=== PATIENT | male | born 1960 | race Caucasian/White ===

== ENCOUNTER → 2018-09-23 | Outpatient (CLI) | payer OTHER ==
--- NOTE | 2018-09-23 21:00 | REP ---
Clinical: Neck pain. Technique: AP, lateral, flexion/extension bilateral oblique, and open-mouth views of the cervical spine. Findings: Alignment and lordosis maintained. Moderate focal degenerative disc osteophyte complex at C5-6 noted including facet arthropathy and neural foraminal narrowing. No acute fracture / compression injury or subluxation. Open mouth view demonstrates normal C1-C2 articulation and odontoid process. Impression: Focal moderate degenerative changes at C5-6. Electronically Signed by Franklin Boateng MD 09/23/2018 08:51 P
== END ==
LOC: M RAD 13:17
PROVIDERS: ATTEND Physician Assistant Medical
DX: M50.322 Other cervical disc degeneration at C5-C6 level (principal)

== ENCOUNTER → 2019-06-12 | Outpatient (REF) | payer OTHER | LOC: M SMT 16:47 | PROVIDERS: ATTEND Urology | DX: R97.20 Elevated prostate specific antigen [PSA] (principal); R39.9 Unspecified symptoms and signs involving the genitourinary system | CPT/HCPCS: 51798; 81002; 87086; G0463 ==

== ENCOUNTER → 2019-06-13 | Outpatient (CLI) | payer OTHER ==
[~2019-06-13] MED LIST: PROHANCE 279.3MG/ML 15ML VIAL (A9576) As Ordered ONE; PROHANCE 279.3MG/ML 5ML VIAL (A9576) As Ordered ONE
--- NOTE | 2019-06-13 16:26 | REP ---
MULTIPARAMETRIC PROSTATE MRI STUDY WITH AND WITHOUT GADOLINIUM: Multiple sequences obtained of the pelvis in the axial, coronal and sagittal planes prior to and following the intravenous administration of 16 mL ProHance. Images are evaluated on the [employer] software and regions of interest are identified for MR ultrasound fusion guided biopsy. There is no adenopathy or free fluid in the pelvis. Visualized osseous structures demonstrate no suspicious bone lesion. Prostate gland measures 4.7 x 3.4 x 3.3 cm for a total volume of 29.53 mL. There are three areas of interest identified in the prostate for MR ultrasound fusion guided biopsy. First on the left transitional zone extending from the base to the apex there is an area of mixed T2 signal which is predominately low in signal on T2 and DWI images. There are area of type 3 enhancement in this region. The area measures 2.0 x 1.0 x 2.8 cm for a total volume of 3.87 mL. Overall level of suspicion is 3 out of 5 with clinically significant cancer equivocal. Second in the right transitional zone extending from the base to the apex, there is heterogeneous T2 hypointensity as well as hypointensity on DWI imaging. There are areas of type 3 enhancement in this region. The area measures 1.8 x 1.1 x 2.1 cm for a total volume of 2.95 mL. Overall level of suspicion is 3 out of 5 with clinically significant cancer equivocal. Thirdly, in the right mid and apical posterior peripheral zone there is a geographic area of predominately low signal on T2 and DWI images. There is predominately type 1 enhancement within this region. The area measures 1.8 x 0.6 x 1.4 cm for a total volume of 1.12 mL. This may represent an area of prostatitis. Overall level of suspicion is 2 out of 5 with clinically significant cancer unlikely to be present. IMPRESSION: Three areas of interest are identified in the prostate for consideration for MR ultrasound fusion guided biopsy. Electronically Signed by Noble Jo MD 06/13/2019 04:27 P
== END ==
LOC: M RAD 12:56
PROVIDERS: ATTEND Urology
DX: R97.20 Elevated prostate specific antigen [PSA] (principal)
CPT/HCPCS: 72197; A9576

== ENCOUNTER → 2019-07-01 | Outpatient (CLI) | payer OTHER ==
--- NOTE | 2019-07-01 13:32 | REPPI ---
TRANSRECTAL ULTRASOUND GUIDANCE FOR PROSTATE BIOPSY: Transrectal ultrasound guidance was provided utilizing MR ultrasound fusion guided biopsy technique. Multiple biopsies are obtained by Dr. Leiva. Electronically Signed by Noble Jo MD 07/01/2019 03:31 P
== END ==
LOC: M SMT PRO 09:05
PROVIDERS: ATTEND Urology
DX: R97.20 Elevated prostate specific antigen [PSA] (principal)
CPT/HCPCS: 55700; 76942; G0416

== ENCOUNTER → 2021-02-09 | Outpatient (CLI) | payer OTHER ==
[2021-02-09 11:37] LABS: APPEARANCE, URINE CLEAR (CLEAR); BACTERIA, URINE AUTO NEGATIVE (NEGATIVE); BILIRUBIN, URINE AUTO NEGATIVE (NEGATIVE); BLOOD, URINE BLOOD 1+ (NEGATIVE); COLOR, URINE YELLOW (YELLOW); GLUCOSE, URINE (UA) AUTO NEGATIVE (NEGATIVE); KETONE, URINE AUTO NEGATIVE (NEGATIVE); LEUKOCYTE ESTERASE, URINE AUTO NEGATIVE (NEGATIVE); NITRITE, URINE AUTO NEGATIVE (NEGATIVE); PROTEIN, URINE AUTO NEGATIVE (NEGATIVE); RBC, URINE AUTO 3 /HPF (0-3); SPECIFIC GRAVITY URINE AUTO 1.005 (1.002-1.035); SQUAMOUS EPITHELIAL CELL UR AU 0 /HPF (0-6); UROBILINOGEN, URINE AUTO 0.2 mg/dL (0.0-2.0); WBC, URINE AUTO 0 /HPF (0-3)
[2021-02-09 11:38] LABS: BASO # 0.1 10^3/uL (0.0-0.2); BASO % 1.4 % (0.0-1.0); EOS # 0.3 10^3/uL (0.0-0.5); EOS % 3.2 % (0.0-3.0); HEMATOCRIT 43.6 % (42.0-52.0); HEMOGLOBIN 14.7 g/dl (13.5-17.5); LYMPH # 2.4 10^3/uL (1.5-5.0); LYMPH % 24.1 % (24.0-44.0); MEAN CORPUSCULAR HEMOGLOBIN 30.7 pg (27.0-33.0); MEAN CORPUSCULAR HGB CONC 33.7 g/dl (32.0-36.5); MONO # 0.8 10^3/uL (0.0-0.8); MONO % 8.3 % (2.0-8.0); NEUTROPHILS # 6.3 10^3/uL (1.5-8.5); NEUTROPHILS % 62.6 % (36.0-66.0); PLATELET COUNT, AUTOMATED 307 10^3/uL (150-450); RED BLOOD COUNT 4.79 10^6/uL (4.30-6.10); WHITE BLOOD COUNT 10.1 10^3/uL (4.0-10.0)
[2021-02-09 12:36] LABS: HEMOGLOBIN A1c 5.5 %
[2021-02-09 12:57] LABS: ALBUMIN 4.4 GM/DL (3.2-5.2); ALT/SGPT 26 U/L (12-78); BILIRUBIN,TOTAL 0.4 MG/DL (0.2-1.0); BLOOD UREA NITROGEN 11 MG/DL (7-18); CALCIUM LEVEL 9.6 MG/DL (8.8-10.2); CARBON DIOXIDE LEVEL 25 MEQ/L (21-32); CHLORIDE LEVEL 107 MEQ/L (98-107); CHOLESTEROL LEVEL 217 MG/DL (<200); CHOLESTEROL RISK RATIO 3.677 (<5); GLOMERULAR FILTRATION RATE > 60.0 (>49); GLUCOSE, FASTING 98 MG/DL (70-100); HDL CHOLESTEROL 59 MG/DL (>40); LDL CHOLESTEROL 109 MG/DL (<100); NON-HDL-C 158 MG/DL; POTASSIUM SERUM 4.8 MEQ/L (3.5-5.1); PROSTATIC SPECIFIC AG MONITOR 8.06 NG/ML (< 4.00); SODIUM LEVEL 140 MEQ/L (136-145); TOTAL PROTEIN 7.4 GM/DL (6.4-8.2); TRIGLYCERIDES LEVEL 247 MG/DL (<150)
== END ==
LOC: M LAB 10:46
PROVIDERS: ATTEND Nurse Practitioner Primary Care
DX: E78.5 Hyperlipidemia, unspecified (principal); R97.20 Elevated prostate specific antigen [PSA]; E04.1 Nontoxic single thyroid nodule

== ENCOUNTER → 2021-05-27 | Outpatient (CLI) | payer OTHER | LOC: M PLALAB 14:28 | PROVIDERS: ATTEND Urology | DX: R97.20 Elevated prostate specific antigen [PSA] (principal) ==

== ENCOUNTER → 2022-06-06 | Outpatient (CLI) | payer OTHER | LOC: M PLALAB 10:20 | PROVIDERS: ATTEND Urology | DX: R97.20 Elevated prostate specific antigen [PSA] (principal) ==

== ENCOUNTER → 2023-01-16 | Outpatient (REF) | LOC: M PLAIMG 08:34 | PROVIDERS: ATTEND Internal Medicine | DX: R06.02 Shortness of breath (principal) ==

== ENCOUNTER → 2023-04-23 | Outpatient (REF) | payer OTHER | LOC: M LAB REF 17:23 | PROVIDERS: ATTEND Internal Medicine Endocrinology, Diabetes & Metabolism | DX: E04.1 Nontoxic single thyroid nodule (principal) ==

== ENCOUNTER → 2023-05-28 | Outpatient (REF) | payer OTHER | LOC: M LABWUC 16:10 | PROVIDERS: ATTEND Urology | DX: R97.20 Elevated prostate specific antigen [PSA] (principal) ==

== ENCOUNTER → 2023-12-18 | Outpatient (CLI) | payer OTHER | LOC: M WUC 13:37 | PROVIDERS: ATTEND Urology | DX: R97.20 Elevated prostate specific antigen [PSA] (principal) ==

== ENCOUNTER → 2024-06-02 | Outpatient (REF) | payer OTHER | LOC: M LABWUC 14:33 | PROVIDERS: ATTEND Urology | DX: R97.20 Elevated prostate specific antigen [PSA] (principal) ==

== ENCOUNTER → 2025-02-19 | Outpatient (CLI) | payer OTHER ==
[2025-02-23 12:22] LABS: PSA % FREE 14.0 % (calc) (>25); PSA FREE 1.0 ng/mL; PSA TOTAL 7.1 ng/mL (< OR = 4.0)
== END ==
LOC: M WUC 14:05
PROVIDERS: ATTEND Urology
DX: R97.20 Elevated prostate specific antigen [PSA] (principal)